=== PATIENT | female | born 1990 | race Caucasian/White ===

== ENCOUNTER 2016-12-18 08:13 | Day surgery (SDC) | payer OTHER ==
[~2016-12-18] VITALS: Ht 172.7 cm; Wt 110.0 kg
[2016-12-18 09:13] VITALS: Ht 172.7 cm; Wt 110.0 kg
[2016-12-18] MEDS ORDERED: NO HOME MEDS (09:22)
[2016-12-18] MEDS ORDERED: PROPOFOL 60 ML ONE (09:56)
[2016-12-18 10:02] VITALS: BP 111/59; PULSE 66; RESP 14
[2016-12-18 10:55] VITALS: BP 115/68; PULSE 68; RESP 18
[2016-12-18 11:48] VITALS: BP 115/68; PULSE 68; RESP 18
--- NOTE | 2016-12-18 11:52 | GILP ---
DATE OF PROCEDURE: NAME OF PROCEDURES: Colonoscopy and biopsy. SURGEON: Frank Green MD PREOPERATIVE DIAGNOSES: History of ulcerative colitis. POSTOPERATIVE DIAGNOSES 1. Colonoscopy all the way to the cecum and into the terminal ileum. 2. Normal terminal ileum. 3. Normal colonic mucosa. 4. Random biopsies were taken to rule out microscopic colitis. 5. Internal hemorrhoids. INDICATION FOR THE PROCEDURE: Mr. Zhao Rodríguez is a 26-year-old female patient who had history of ulcerative colitis. The patient discontinuing the medications and she had history of diarrhea of f and on. The patient was scheduled for colonoscopy for further evaluation. The procedure and possible complications are well explained to the patient. She understood and cons ented to the procedure. DESCRIPTION OF PROCEDURE: Under the influence of anesthesia, the colonoscope was carefully introduc ed in the rectum and under direct vision, it was advanced all the way to the cecum and through the i leocecal valve into the terminal ileum. FINDINGS: The terminal ileum was normal. The colonic mucosa was normal. Random biopsies were take n to rule out microscopic colitis. She had internal hemorrhoids. She tolerated the procedure very well and there was no complication from the procedure. At the end of the procedure, she was awake with stable vital signs and she was discharged home to the care of h family. IMPRESSION: Please see postoperative diagnosis. PLAN: Await histopathology report. Dictated By: FRANK PAINTING/CELESTE Conf#: [id number] DID#: [id number]
== END 2016-12-18 13:54 | disposition home or self-care (01) ==
LOC: GIL 08:13
PROVIDERS: ATTEND Internal Medicine Gastroenterology
DX: R19.7 Diarrhea, unspecified (principal); K64.8 Other hemorrhoids
CPT/HCPCS: 45380; 84703; Z7610; 88305